=== PATIENT | male | born 1995 | race African-American/Black ===

== ENCOUNTER 2019-09-22 19:21 | Observation (INO) | payer BC, SELFPAY ==
[2019-09-22] MEDS ORDERED: Morphine 4 MG/ML VIAL ONE (19:27)
[2019-09-22] MEDS ORDERED: Adacel (T-DAP) 0.5 ML SYRINGE ONE ×2 (19:28→21:59)
[2019-09-22] MEDS ORDERED: CEFAZOLIN 1 GM VIAL ONE (19:28)
[2019-09-22] MEDS ORDERED: Ondansetron PF 4 MG/2 ML Vial ONE (19:28)
[2019-09-22 19:41] LABS: Hemoglobin 15.4 g/dL (14.0-18.0); Mean Corpuscular HGB CONC 32.2 g/dL (32.0-36.0); Mean Corpuscular Hemoglobin 28.1 pg (27.0-31.0); Mean Corpuscular Volume 87.1 fL (78.0-98.0); Mean Platelet Volume 9.1 fL (7.4-10.4); Platelet Count 226 thou/uL (130-400); Red Blood Cell (RBC) Count 5.49 mill/uL (4.70-6.10); White Blood Cell (WBC) Count 15.9 thou/uL (4.8-10.8)
[2019-09-22 19:46] LABS: PTT 25.1 SEC (22.9-36.1); Prothrombin Time 12.7 SEC (12.0-14.7)
[2019-09-22] MEDS ORDERED: Ketorolac Tromethamine 30 MG/ML VIAL ONE (19:46)
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
[2019-09-22 19:56] LABS: Band 2 % (5-11); Eosinophils 3 % (0-10); Lymphocytes 59 % (21-51); MDiff Complete? YES; Monocytes 4 % (0-10); Neutrophil 26 % (42-75); Platelet Morphology Comment Appears Adequate; RBC Morphology Normal; Reactive Lymphocytes 6 % (0-10)
[2019-09-22] MEDS ORDERED: Lidocaine 2% MPF 10 ML AMP (For Epidural Use) ONE (19:56)
[2019-09-22] MEDS ORDERED: Lidocaine 1% (PF) 30 ML VIAL ONE (19:57)
[2019-09-22 19:59] LABS: ALT (SGPT) 25 U/L (8-55); AST (SGOT) 29 U/L (5-34); Albumin 4.5 g/dL (3.5-5.0); Alkaline Phosphatase 70 U/L (40-110); Anion Gap 21 mmol/L (10-20); BUN (Urea Nitrogen) 13 mg/dL (8.9-20.6); Bilirubin, Total 0.4 mg/dL (0.2-1.2); Calc. Creatinine Clearance 0 mL/min (70-130); Carbon Dioxide 21 mmol/L (22-29); Chloride 102 mmol/L (98-107); Estimated GFR-MDRD 73; Glucose 144 mg/dL (70-105); Protein, Total 7.5 g/dL (6.0-8.3); Sodium 141 mmol/L (136-145)
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
[2019-09-22] MEDS ORDERED: Potassium Chloride 20 MEQ TAB ONE (21:36)
[2019-09-22 22:09] LABS: Amphetamine Not Detected (NotDetected); Barbiturates Screen Not Detected (NotDetected); Benzodiazepine Screen Not Detected (NotDetected); Cocaine Metabolite Screen Not Detected (NotDetected); Medtox Control Line Valid? VALID (VALID); Medtox Reader # READER 4; Methadone Not Detected (NotDetected); Methamphetamine Not Detected (NotDetected); Opiate Screen Detected (NotDetected); Oxycodone Screen Not Detected (NotDetected); Phencyclidine (PCP) Not Detected (NotDetected); THC/Cannabinoid Screen Detected (NotDetected); Tricyclic Screen Not Detected (NotDetected)
[2019-09-22] MEDS ORDERED: Dextrose 50% Abboject 50 ML SYRINGE SLOW IVP PRN (22:27)
[2019-09-22] MEDS ORDERED: Dextrose 5% in Water 1,000 ML IV PRN (22:27)
[2019-09-22] MEDS ORDERED: Cyclobenzaprine 10 MG TAB PO PRN (22:27)
[2019-09-22] MEDS ORDERED: Ondansetron PF 4 MG/2 ML Vial IVP PRN (22:27)
[2019-09-22] MEDS ORDERED: Ondansetron ODT 4 MG TAB PO PRN (22:27)
[2019-09-22 22:30] VITALS: BMI 23.1
[2019-09-22] MEDS ORDERED: Famotidine 20 MG TAB PO SCH (22:45)
[2019-09-22] MEDS: Morphine 2 MG/ML SYRINGE SLOW IVP PRN (22:48)
[2019-09-22 23:04] LABS: Magnesium 2.1 mg/dL (1.6-2.6); Phosphorus 2.6 mg/dL (2.3-4.7)
[2019-09-22] MEDS ORDERED: Ketorolac Tromethamine 30 MG/ML VIAL IVP SCH ×2 (23:59)
[2019-09-23] MEDS ORDERED: Potassium Chloride 20 MEQ in Premix Bag 1 BAG IVPB SCH
[2019-09-23] MEDS: Sodium Chloride 0.9% 1,000 ML IV SCH ×3 (00:29→18:47)
[2019-09-23] MEDS: ceFAZolin 1 GM/D5W 1 GM in Premix Bag 1 BAG IVPB SCH ×4 (04:29→20:06)
[2019-09-23 05:29] LABS: #Basophils 0.1 thou/uL (0.0-0.2); #Eosinphils 0.2 thou/uL (0.0-0.7); #Lymphocytes 2.7 thou/uL (1.20-3.40); #Monocytes 1.4 thou/uL (0.11-0.59); #Neutrophils 10.1 thou/uL (1.40-6.50); %Basophils 0.5 % (0.0-1.0); %Eosinophils 1.1 % (0.0-10.0); %Lymphocytes 18.6 % (21.0-51.0); %Monocytes 9.4 % (0.0-10.0); %Neutrophils 70.4 % (42.0-75.0); Mean Corpuscular HGB CONC 31.5 g/dL (32.0-36.0); Mean Corpuscular Hemoglobin 27.4 pg (27.0-31.0); Mean Corpuscular Volume 86.8 fL (78.0-98.0); Mean Platelet Volume 9.7 fL (7.4-10.4); Platelet Count 174 thou/uL (130-400); Red Blood Cell (RBC) Count 5.11 mill/uL (4.70-6.10); White Blood Cell (WBC) Count 14.3 thou/uL (4.8-10.8)
[2019-09-23 05:53] LABS: Anion Gap 11 mmol/L (10-20); BUN (Urea Nitrogen) 10 mg/dL (8.9-20.6); Calc. Creatinine Clearance 120 mL/min (70-130); Calcium 8.5 mg/dL (7.8-10.44); Carbon Dioxide 23 mmol/L (22-29); Chloride 108 mmol/L (98-107); Estimated GFR-MDRD Greater than 90; Glucose 101 mg/dL (70-105); Phosphorus 3.6 mg/dL (2.3-4.7); Potassium 4.6 mmol/L (3.5-5.1); Sodium 137 mmol/L (136-145)
[2019-09-23] MEDS: Ketorolac Tromethamine 30 MG/ML VIAL IVP SCH ×4 (08:13→20:07)
[2019-09-23] MEDS: Famotidine 20 MG TAB PO SCH ×2 (08:14→20:01)
[2019-09-23] MEDS: Morphine 2 MG/ML SYRINGE SLOW IVP PRN (08:16)
[2019-09-23] MEDS ORDERED: Fentanyl 100 MCG/2 ML VIAL ONE ×2 (13:31→13:57)
[2019-09-23] MEDS ORDERED: Midazolam HCl 2 mg/2 ml Vial ONE ×2 (13:31→13:57)
[2019-09-23] MEDS ORDERED: Bupivacaine HCl 0.5%/Epinephrine 1:200,000/PF 30 ml Vial ONE (14:02)
[2019-09-23] MEDS ORDERED: Lidocaine 1% PF 5 ML VIAL ONE (14:02)
[2019-09-23] MEDS ORDERED: PROPOFOL 200 MG/20 ML VIAL ONE (14:02)
[2019-09-23] MEDS ORDERED: PHENYLEPHRINE-NS 100 MCG/ML 10 ML SYRINGE ONE (14:02)
[2019-09-23] MEDS ORDERED: Neomycin-Polymyxin 1 ML AMP ONE (14:13)
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
[2019-09-23 20:06] VITALS: BP 103/64; TEMP 98.4
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
== END 2019-09-23 20:35 | disposition home or self-care (01) ==
LOC: ERS 19:21 → EEVIPCON 19:21 → SURG A 22:14 → INTOOBSV 22:14
PROVIDERS: ADMIT Specialist; ATTEND Specialist
PROC: 0PSK04Z Reposition Right Ulna with Internal Fixation Device, Open Approach (ICD-10-PCS; principal; 2019-09-23)
PROC: 3E0T3BZ Introduction of Anesthetic Agent into Peripheral Nerves and Plexi, Percutaneous Approach (ICD-10-PCS; 2019-09-23)
DX: S52.251B Displaced comminuted fracture of shaft of ulna, right arm, initial encounter for open fracture type I or II (principal); G89.18 Other acute postprocedural pain; W34.00XA Accidental discharge from unspecified firearms or gun, initial encounter
CPT/HCPCS: 25530; 36415; 76000; 80048; 80053; 80306; 83735; 84100; 85025; 85610; 85730; 90715; 93005; 96361; 96365; 96366; 96367; 96375; 96376; C1713; G0378; J0670; J0690; J1885; J2001; J2250; J2270; J2405; J2704; J3010; J3480

== ENCOUNTER 2019-09-24 17:31 | Emergency (ER) | payer BC ==
[2019-09-24] MEDS ORDERED: Ketorolac Tromethamine 30 MG/ML VIAL ONE (18:00)
[2019-09-24] MEDS ORDERED: HYDROcodone/Acetaminophen 5/325 mg Tablet ONE (18:00)
== END 2019-09-24 18:29 | disposition home or self-care (01) ==
LOC: ERS 17:31
DX: G89.18 Other acute postprocedural pain (principal); S52.201D Unspecified fracture of shaft of right ulna, subsequent encounter for closed fracture with routine healing; X58.XXXD Exposure to other specified factors, subsequent encounter
CPT/HCPCS: 29125; 96372; J1885

== ENCOUNTER 2020-01-20 22:03 | Emergency (ER) | payer BC ==
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
== END 2020-01-21 00:15 | disposition home or self-care (01) ==
LOC: ERS 22:03
DX: S50.11XA Contusion of right forearm, initial encounter (principal); W22.8XXA Striking against or struck by other objects, initial encounter

== ENCOUNTER 2021-06-20 11:07 | Emergency (ER) | payer BC ==
[2021-06-20] MEDS ORDERED: Boostrix 0.5 ML (Tdap) VIAL ONE (11:31)
[2021-06-20] MEDS ORDERED: Ketorolac Tromethamine 30 MG/ML VIAL ONE (11:31)
[2021-06-20] MEDS ORDERED: Lidocaine 1% PF 5 ML VIAL ONE (11:31)
[2021-06-20] MEDS ORDERED: Ondansetron PF 4 MG/2 ML Vial ONE (11:31)
== END 2021-06-20 13:23 | disposition home or self-care (01) ==
LOC: ERS 11:07
DX: S01.412A Laceration without foreign body of left cheek and temporomandibular area, initial encounter (principal); S05.42XA Penetrating wound of orbit with or without foreign body, left eye, initial encounter; Y08.09XA Assault by strike by other specified type of sport equipment, initial encounter; Z23 Encounter for immunization
CPT/HCPCS: 12052; 70450; 70486; 90471; 90715; 96374; 96375; J1885; J2405